=== PATIENT | female | born 1975 | race Hispanic/Latino ===

== ENCOUNTER → 2017-03-08 | Outpatient (CLI) | payer OTHER ==
--- NOTE | 2017-03-08 18:02 | Diagnostic Imaging Report ---
INDICATION: Lower abdominal pain. COMPARISON: Comparison with 10/08/2014 exam. FINDINGS: Uterus measures 8.3 x 5.5 x 4.1 cm. Endometrial stripe measures 2 mm. The right ovary measures 3.4 x 4.1 x 2 cm. The left ovary measures 1.3 x 1.5 x 1.8 cm. There is a simple cyst along the right adnexa measuring 2.5 cm in greatest dimension. No solid masses. No free fluid. IMPRESSION: 1. Normal appearing uterus. 2. Simple appearing right adnexal cyst again noted without significant change since previous ultrasound and CT of the pelvis. Dictated by: Dictated on workstation # [id number]
== END ==
LOC: RAD 12:44
PROVIDERS: ATTEND Internal Medicine
DX: N83.202 Unspecified ovarian cyst, left side (principal)
CPT/HCPCS: 76830; 76856

== ENCOUNTER → 2017-12-16 | Outpatient (CLI) | payer SELFPAY ==
--- NOTE | 2017-12-16 15:48 | Diagnostic Imaging Report ---
INDICATION: Amenorrhea and pelvic pain. TECHNIQUE: Multiple Real-time grayscale images were obtained of the pelvis in various projections endovaginally. Transabdominal imaging was also performed. FINDINGS: The uterus measures 10.4 x 5.4 x 4.4 cm. The endometrium is approximately 12 mm in thickness. No myometrial mass is detected. The left ovary measures 2.4 x 1.8 x 2.2 cm. There is a cyst in the right adnexa measuring approximately 2.6 x 2.4 x 3.3 cm in size. No internal vascularity is seen. This is likely ovarian but no ovarian tissue in the right adnexa is visualized. There is no free fluid. IMPRESSION: Right adnexal cyst, likely ovarian. The study is otherwise unremarkable. Dictated by: Dictated on workstation # [id number]
== END ==
LOC: RAD 14:28
PROVIDERS: ATTEND Nurse Practitioner Primary Care
DX: N83.8 Other noninflammatory disorders of ovary, fallopian tube and broad ligament (principal)
CPT/HCPCS: 76830; 76856

== ENCOUNTER → 2020-01-14 | Outpatient (CLI) | payer OTHER ==
--- NOTE | 2020-01-14 15:25 | Diagnostic Imaging Report ---
PROCEDURE: US Non-ob pelvis comp/trans. TECHNIQUE: Multiple real-time grayscale images were obtained of the pelvis in various projections endovaginally. Transabdominal imaging was also performed. INDICATION: Thickened endometrium. FINDINGS: Uterus is anteverted measuring 9.3 x 4.7 x 6.3 cm. Endometrium is approximately 14 mm in thickness. No myometrial mass is detected. Right ovary measures 2.8 x 2.2 x 1.6 cm and left ovary measures 2.5 x 1.8 x 1.8 cm. A cervical nabothian cyst is present measuring 5 mm. There is a cyst in the right adnexa measuring 3.3 x 2.6 x 2.4 cm. No free fluid is detected. IMPRESSION: 1. Mild endometrial thickening at 14 mm. 2. 3.3 cm right adnexal cyst. Follow-up to confirm clearing is recommended. Dictated by: Dictated on workstation # [id number]
== END ==
LOC: RAD 11:36
PROVIDERS: ATTEND Obstetrics & Gynecology
DX: N83.8 Other noninflammatory disorders of ovary, fallopian tube and broad ligament (principal); R93.89 Abnormal findings on diagnostic imaging of other specified body structures
CPT/HCPCS: 76830; 76856